=== PATIENT | male | born 1995 | race Caucasian/White ===

== ENCOUNTER 2017-05-25 12:52 | Emergency (ER) | payer OTHER ==
[2017-05-25] MEDS: KETOROLAC 60 MG/2 ML VIAL (J1885) IM (16:00)
== END 2017-05-25 16:41 | disposition home or self-care (01) ==
LOC: M ED 12:52
DX: G43.011 Migraine without aura, intractable, with status migrainosus (principal); J30.9 Allergic rhinitis, unspecified; J01.90 Acute sinusitis, unspecified; F17.210 Nicotine dependence, cigarettes, uncomplicated
CPT/HCPCS: J1885

== ENCOUNTER → 2019-09-30 | Outpatient (CLI) | payer OTHER ==
[~2019-09-30] MED LIST: CEFD1CAP8 PO; FLON1SPR; GABA-1171 PO; IBUP-1022 PO; IBUP200C25 PO
== END ==
LOC: M LABSMTC 09:03
PROVIDERS: ATTEND Anesthesiology
DX: Z01.818 Encounter for other preprocedural examination (principal); Z11.59 Encounter for screening for other viral diseases

== ENCOUNTER 2019-10-03 08:10 | Day surgery (SDC) | payer OTHER ==
[~2019-10-03] VITALS: Ht 165.1 cm; Wt 80.2 kg
[~2019-10-03 08:10] MED LIST changes: +LIDOCAINE 1% MDV 20ML VIAL SQ PRN; +LR 1,000 ML IV ONE; +ceFAZolin SOD 2 GM in IV 1 EA IV ONE
[2019-10-03] MEDS ORDERED: LIDOCAINE 1% MDV 20ML VIAL ONE ×2 (08:11)
[2019-10-03] MEDS ORDERED: ROPIvacaine 0.5% 30ML INJECTION (J2795 PER 1MG) ONE ×2 (08:11)
[2019-10-03] MEDS ORDERED: dexameTHASONE 10MG/1ML VIAL PRES.FREE (J1100 PER 1MG) ONE ×2 (08:11)
[2019-10-03] MEDS ORDERED: EPINEPHrine 1MG/ML INJ 30ML MD-VIAL As Ordered ONE (09:14)
[2019-10-03] MEDS ORDERED: fentaNYL 100 MCG/2 ML INJECTION (J3010) As Ordered ONE ×3 (10:11→11:22)
[2019-10-03] MEDS ORDERED: MIDAZOLAM INJ 2MG/2ML VIAL (J2250 PER 1MG) As Ordered ONE ×2 (10:11→11:21)
[2019-10-03] MEDS: fentaNYL 100 MCG/2 ML INJECTION (J3010) IV SCH ×2 (10:30→10:37)
[2019-10-03] MEDS: MIDAZOLAM INJ 2MG/2ML VIAL (J2250 PER 1MG) IV SCH ×2 (10:30→10:35)
[2019-10-03] MEDS ORDERED: propofoL 200 MG/20 ML VIAL As Ordered ONE (11:21)
[2019-10-03] MEDS ORDERED: ROCURONIUM BROMIDE 50 MG/5 ML VIAL As Ordered ONE (11:21)
[2019-10-03] MEDS ORDERED: LIDOCAINE 2% 100MG/5ML SDV (FOR ANES.) As Ordered ONE (11:21)
[2019-10-03] MEDS ORDERED: dexameTHASONE 4 MG/ML 1ML VIAL (J1100 PER 1MG) As Ordered ONE (11:21)
[2019-10-03] MEDS ORDERED: ONDANSETRON 4MG/2ML VIAL As Ordered ONE (11:22)
[2019-10-03] MEDS ORDERED: BUPIVACAINE HCL 0.25% 10ML VIAL As Ordered ONE (11:40)
[2019-10-03] MEDS ORDERED: BUPIVACAINE HCL 0.5% 10ML VIAL As Ordered ONE (11:40)
[2019-10-03] MEDS ORDERED: SUGAMMADEX SODIUM 500 MG/5 ML VIAL (BRIDION) As Ordered ONE (11:48)
[2019-10-03] MEDS ORDERED: KETOROLAC 60 MG/2 ML VIAL As Ordered ONE (11:49)
[2019-10-03] MEDS ORDERED: LR 1,000 ML IV SCH ×2 (13:15→13:30)
[2019-10-03] MEDS ORDERED: fentaNYL 100 MCG/2 ML INJECTION (J3010) IV PRN (13:30)
[2019-10-03] MEDS ORDERED: oxyCODONE 5MG TAB PO PRN ×2 (13:30)
[2019-10-03] MEDS ORDERED: ONDANSETRON 4MG/2ML VIAL IV PRN (13:30)
[2019-10-03] MEDS ORDERED: ACETAMINOPHEN 500 MG TAB PO PRN (13:30)
[2019-10-03 16:00] VITALS: BP 144/90
[2019-10-03] MEDS ORDERED: IBUPROFEN 600 MG TAB PO SCH (20:00)
--- NOTE | 2019-10-06 12:13 | RO ---
DATE OF SURGERY: 10/03/2019 PREOPERATIVE DIAGNOSES: 1. Left shoulder acromioclavicular joint arthritis. 2. Left shoulder impingement. 3. Left shoulder possible labral tear. POSTOPERATIVE DIAGNOSES: 1. Left shoulder acromioclavicular joint arthritis. 2. Left shoulder impingement. 3. Left shoulder superior labral tear. 4. Left shoulder partial articular rotator cuff tear. PROCEDURE: 1. Left shoulder arthroscopic subacromial decompression including acromioplasty. 2. Left shoulder arthroscopic distal clavicle excision (Mario procedure). 3. Left shoulder open subpectoral biceps tenodesis. 4. Left shoulder rotator cuff debridement and labral debridement. SURGEON: Dr. Jann Nolan COSMETIC MANAGER: ROX Adames ANESTHESIA: General with preoperative nerve block. INTRAVENOUS (IV) FLUIDS: Lactated Ringer's. ESTIMATED BLOOD LOSS: 10 mL. IMPLANTS: Arthrex proximal biceps button times one. CLOSURE: Nylon and Monocryl. DESCRIPTION OF PROCEDURE: Patient identified in the preoperative holding area. The left shoulder was marked by myself. He denied symptoms of instability. I performed the modified apprehension test and there was no apprehension. He denied symptoms of sagging or instability. He then had his nerve block from anesthesia, then was brought the operating room, placed supine on a well-padded operating room (OR) table. General anesthesia was induced. The Arthrex StaR sleeve of the humerus traction nathan was placed on the left arm. Exam under anesthesia revealed full range of motion, no increase and a grade 1+ anterior and posterior load shift. He was placed in the right side down lateral decubitus position with an axillary roll and all bony prominences were well-padded. He was secured to the OR table with a beanbag. Left arm had 10 pounds of traction. A repeat load and shift showed no dramatic increase in the anterior posterior translation, about grade 1+ versus grade 2 anterior grade 1+ posterior. The left shoulder was then prepped and draped in normal sterile fashion with Chloraprep. Prior to incision, a time-out was preformed per hospital protocol. ROX Adames was present for the entire procedure and participated in all essential portions of procedure. This included patient positioning and draping, holding the arthroscope, passing instruments, holding retractors during the biceps tenodesis, assisting with whipstitching the tendon, performing the wound closure, applying the plantar dressing and sling. The left shoulder was insufflated with lactated Ringer's. A standard posterior vein portal made with a #11 blade. A 30 degree arthroscope introduced into the joint. Diagnostic arthroscopy carried out. No significant chondromalacia on the glenohumeral joint. No Hill-Sachs. There was a fissure at the chondral labral junction as the anterior inferior and posterior labrum. The humeral head was mostly centered on the glenoid in the inferior third. Negative drive-through sign. There was a tear of the superior labrum. Subscapularis was intact. There was a low grade partial articular tear of the supraspinatus. An anterior working portal was established with a rotator interval and on probing of the superior labrum there was a type 2 slap tear. The anchor was unstable. The arthroscope was now placed in the anterior portal giving a abetter view posteriorly. The humeral head was noted to be well centered on the glenoid. No indication for a labral repair. I performed a tenotomy of the long head of the biceps with a meniscal biter due to the unstable slap tear. A shaver was then used to debride the leading edge of the torn labrum. The shaver was also used to debride the partial articular rotator cuff tear. This was felt to the less than 10%. We then proceeded with an open biceps tenodesis. Incision made we a #15 blade just lateral to the axilla. Injected 10 mL of 0.5% Marcaine without epinephrine. Careful subcutaneous dissection down the biceps fascia with Metzenbaum about scissors. Biceps fascia was carefully opened. Right angle clamp used to dissect the long head of the biceps uneventfully. The tendon had some fraying further distal as well. The Arthrex proximal biceps tenodesis kit was opened and the fiber loop used to place a running locking whipstitch. Excess tendon trimmed and sent to pathology per routine. Sutures were passed through the button per routine. Unicortical drill hole was then drilled with the spade tip drill bit within the bicipital groove a centimeter proximal to the lower edge of the pec. Bony debris removed with irrigation. The button was passed through the drill hole on the customer account technician. Sutures were tunneled to slip the button and dock the tendon along the groove nicely. Curved free needle was used to pass one limb of suture back to the tendon. Knots were tied by hand to walk the construct in place. This nicely restored the resting tension. Incision was irrigated and then closed with #2-0 Vicryl and a running Monocryl with Steri-Strips placed at the end. The arthroscope was now placed in the subacromial space where there is mild bursitis. A bursectomy was performed with shaver and cautery through a lateral portal. A bur was used to perform a formal acromioplasty turning this into a type 1 morphology. The rotator cuff was palpated. There was no bursal sided tearing. Attention was then turned to the AC joint. Cautery was used to clear soft-tissue out of the AC joint where there was [id number] contact. The bur was used to remove 6-7 mm of the distal clavicle. The scope was intermittently placed through the anterior portal to ensure all posterosuperior bone was removed. Following an excellent decompression there the shoulder was irrigated and drained. Portals closed with nylon suture. A bulky sterile dressing applied. He was extubated, transferred to the postanesthesia care unit (PACU) in stable condition.
== END 2019-10-03 16:17 | disposition home or self-care (01) ==
LOC: M SDC 08:10
PROVIDERS: ATTEND Orthopaedic Surgery
DX: M19.012 Primary osteoarthritis, left shoulder (principal); M75.42 Impingement syndrome of left shoulder; M75.112 Incomplete rotator cuff tear or rupture of left shoulder, not specified as traumatic; K21.9 Gastro-esophageal reflux disease without esophagitis; F17.218 Nicotine dependence, cigarettes, with other nicotine-induced disorders; Z79.899 Other long term (current) drug therapy; Z91.040 Latex allergy status; Z91.011 Allergy to milk products; Z91.018 Allergy to other foods
CPT/HCPCS: 23430; 29823; 29824; 29826; 64415; 88304; C1713; J0690; J1100; J1885; J2250; J2405; J2795; J3010

== ENCOUNTER → 2019-10-19 | Outpatient (CLI) | payer OTHER ==
[~2019-10-19] MED LIST changes: -LIDOCAINE 1% MDV 20ML VIAL SQ PRN; -LR 1,000 ML IV ONE; -ceFAZolin SOD 2 GM in IV 1 EA IV ONE
[2019-10-19 12:26] LABS: BASO # 0.1 10^3/uL (0.0-0.2); EOS # 0.4 10^3/uL (0.0-0.5); EOS % 5.7 % (0.0-3.0); HEMATOCRIT 40.9 % (42.0-52.0); HEMOGLOBIN 13.5 g/dl (13.5-17.5); LYMPH # 2.2 10^3/uL (1.5-5.0); LYMPH % 29.7 % (24.0-44.0); MEAN CORPUSCULAR VOLUME 93.8 fl (80.0-96.0); MONO # 0.4 10^3/uL (0.0-0.8); NEUTROPHILS # 4.2 10^3/uL (1.5-8.5); NEUTROPHILS % 57.5 % (36.0-66.0); PLATELET COUNT, AUTOMATED 240 10^3/uL (150-450); RED BLOOD COUNT 4.36 10^6/uL (4.30-6.10); WHITE BLOOD COUNT 7.4 10^3/uL (4.0-10.0)
[2019-10-19 13:05] LABS: ERYTHROCYTE SEDIMENTATION RATE 6 mm/hr (0-15)
== END ==
LOC: M LAB 11:35
PROVIDERS: ATTEND Orthopaedic Surgery
DX: Z47.89 Encounter for other orthopedic aftercare (principal)